=== PATIENT | male | born 1950 | race Caucasian/White ===

== ENCOUNTER 2017-09-24 07:45 | Day surgery (SDC) | payer OTHER ==
[~2017-09-24] VITALS: Ht 170.2 cm; Wt 88.5 kg
[~2017-09-24 07:45] MED LIST: ATOR10; Ginseng250 MG; IBUP400
== END 2017-09-24 09:55 | disposition home or self-care (01) ==
LOC: ORSCSDS 07:45
DX: Z12.11 Encounter for screening for malignant neoplasm of colon (principal); D12.0 Benign neoplasm of cecum; K63.89 Other specified diseases of intestine; K57.30 Diverticulosis of large intestine without perforation or abscess without bleeding; J44.9 Chronic obstructive pulmonary disease, unspecified; E78.5 Hyperlipidemia, unspecified; Z87.891 Personal history of nicotine dependence; Z79.899 Other long term (current) drug therapy
CPT/HCPCS: 88305; J0330; J1980; J2405

== ENCOUNTER 2019-11-19 16:28 | Inpatient (IN) | payer OTHER ==
[~2019-11-19] VITALS: Ht 170.2 cm; Wt 86.5 kg
[~2019-11-19 16:28] MED LIST changes: -ACET500 PO
[2019-11-19 21:45] LABS: CHOL/HDL RATIO 2.5; Cholesterol 158 mg/dL (50-200); HDL Cholesterol 64 mg/dL (>39); LDL/HDL RATIO 1.3; Low Density Lipoprotein Chol 82 mg/dL (0-110); Triglycerides 61 mg/dL (30-160); Very Low Density Lipoprot Chol 12 mg/dL (6-32)
--- NOTE | 2019-11-19 22:31 | NUR ---
PATIENT IS A NEW ADMIT FROM THE ED. SBA ASSIST TRANSFER FROM [facility] TO BED. ON 2L O2 NC AND RA BASELINE. AXOX 4 AND NPO. REPORTS SMOKING BOWL OF CANNABIS X ONE NIGHTLY AND EITHER HAVING A GLASS OF WINE/BEER X ONE WITH DINNER. REPORTED UPPER ABD/BACK PAIN. PATIENT ORIENTED TO ROOM AND CALL LIGHT SYSTEM. WILL CONTINUE TO MONITOR.
--- NOTE | 2019-11-19 22:36 | NUR ---
IV FENTANYL 50 MCG GIVEN FOR UPPER ABD/BACK PAIN. NS STARTED AT 125 mL/HR X ONE AND HALF BAGS. PATIENT REPORTS HE IS READY FOR BED. CALL LIGHT IN REACH.
--- NOTE | 2019-11-20 00:02 | NUR ---
PATIENT NAUSEOUS X ONE AND IV ZOFRAN GIVEN PER EMAR. BACK RESTING IN BED. CALL LIGHT IN REACH.
--- NOTE | 2019-11-20 03:25 | NUR ---
SHIFT SUMMARY PATIENT N/V X ONE AND ZOFRAN GIVEN PER EMAR AND RESOLVED. REPORTED UPPER ABD/BACK PAIN X TWO AND IV FENTANYL 50 MCG GIVEN PER EMAR. PIV REMAINS INTACT. NS INFUSING AT 125 mL/HR X 1.5 L. ON 2L O2 NC AND RA BASELINE. VSS WITH LOW GRADE TEMP. ROOM TEMPERATURE REDUCED AND BLANKETS REMOVED. AXOX 4 AND INDEPENDENT. NPO AT THIS TIME. CALL LIGHT IN REACH. BED IN LOWEST POSITION. WILL CONTINUE TO MONITOR UNTIL DAY SHIFT NURSE ASSUMES CARE.
--- NOTE | 2019-11-20 03:56 | NUR ---
PATIENT NAUSEOUS FOR SECOND TIME THIS SHIFT. IV ZOFRAN GIVEN PER EMAR.
[2019-11-20 04:57] LABS: Hematocrit 43.3 % (37.0-53.0); Hemoglobin 14.1 g/dL (13.5-17.5); Mean Corpuscular HGB 29.4 pg (26.0-34.0); Mean Corpuscular HGB Conc 32.6 g/dL (31.5-36.5); Mean Corpuscular Volume 90 fL (80-100); Mean Platelet Volume 9.5 fL (9.1-12.4); Platelet Count 264 K/mm3 (150-400); RDW Coefficient Variation 12.5 % (11.7-14.2); RDW Standard Deviation 41.4 fL (35.1-46.3); White Blood Cell Count 25.86 K/mm3 (4.00-11.30)
[2019-11-20 05:18] LABS: Alanine Aminotransfer (ALT/SGP 34 U/L (12-78); Albumin, Blood 3.4 g/dL (3.4-5.0); Albumin/Globulin Ratio 0.8 (0.8-1.8); Alk Phos 71 U/L (50-136); Anion Gap 7 mmol/L (6-16); Aspartate Aminotrans (AST/SGOT 19 U/L (12-37); Bilirubin, Total 0.8 mg/dL (0.1-1.0); Blood Urea Nitrogen 16 mg/dL (8-24); Bun/Creatinine Ratio 27.8 (12.0-20.0); CO2, Blood 26 mmol/L (21-32); Calcium, Blood 8.8 mg/dL (8.5-10.1); Chloride, Blood 106 mmol/L (98-108); Creatinine, Blood 0.58 mg/dL (0.60-1.20); Globulin, Blood 4.3 g/dL (2.2-4.0); Glomerular Filtration Rate >60 (60-); Glucose, Blood 101 mg/dL (70-99); Potassium, Blood 3.5 mmol/L (3.5-5.5); Sodium, Blood 139 mmol/L (136-145); Total Protein, Blood 7.7 g/dL (6.4-8.2)
--- NOTE | 2019-11-20 17:34 | NUR ---
SHIFT SUMMARY- PT IS A/O, PLESANT AND COOPERATIVE. PT WAS STARTED ON IV PROTONIX THIS MORNING WHICH HE SAID RELIEVED HIS REFLUX LIKE SYMPTOMS. HE IS RECIEVING IV PAIN MEDICATIONS PRN. HE HAD AN MRI AROUND 1200. PT IS NPO AT THIS TIME. HE IS INDEPENDANT IN THE ROOM.
--- NOTE | 2019-11-21 06:35 | NUR ---
SHIFT SUMMARY: VSS. AFEB. A/OX3. CONT W RUQ AND RLQ ABD DISCOMFORT WELL BACK PAIN. FENTANYL ADMINISTERED W/IMPROVEMENT IN PAIN. HEAT PACK APPLIED TO BACK, PT STATES IT'S SOOTHING MORE THAN PAIN RELIEVING. HAS BEEN SLEEPING THROUGH MUCH OF THE NIGHT. NO N/V. STATES PROTONIX HELPFUL. NO ACUTE CHANGES. PT RECIEVING WATER AND ICE CHIPS ONLY AND WILL BE NPO AFTER NOON TODAY IN PREP FOR EGD.
--- NOTE | 2019-11-21 16:09 | NUR ---
Patient gave student nurse permission for care 21 NOV 2019.
--- NOTE | 2019-11-21 16:29 | NUR ---
INTO [employer]IA [employer]. PT REPORTS 7/10 ABDOMINAL AND BACK PAIN. PT STATES THAT 3/10 IS TOLERABLE LEVEL FOR MED. HISTORY AND ALLERGIES REVIEWED NPO STATUS CONFIRMED. LUNGS CLEAR-SATS 97% ON RA.
--- NOTE | 2019-11-21 17:36 | NUR ---
11/21/19 1736 Miryam Harrington History, Chart, Medications and Allergies reviewed before start of procedure.PATIENT DETERMINED TO BE ASA APPROPRIATE FOR PROPOFOL SEDATION PRIOR TO START OF PROCEDURE BY .MONITOR INTACT WITH CONTINUOUS PULSE OXIMETRY AND INTERMITTENT BP.3-LEAD EKG REVIEWED WITH PHYSICIAN PRIOR TO START OF PROCEDURE.O2 VIA N/C INTACT THROUGHOUT SEDATION/PROCEDURE.
--- NOTE | 2019-11-21 19:34 | NUR ---
SHIFT SUMMARY PT A/O THROUGHOUT THIS SHIFT. PT MAINTAINED ON WATER AND ICE CHIPS UNTIL NOON, NPO AFTER NOON. PT TO ENDOSCOPY THIS AFTERNOON. PT RETURNED TO THE ROOM AROUND 430. PT ALERT AND ORIENTED UPON RETURN. SPOUSE IN ROOM BEFORE AND AFTER PROCEDURE. PT MEDICATED FOR PAIN THROUGHOUT THIS SHIFT. PT CURRENTLY SITTING UP IN BED.
--- NOTE | 2019-11-22 07:25 | NUR ---
END OF SHIFT; PATIENT WAS AOX4 THIS SHIFT. PT C/O MOSTLY BACK PAIN THIS SHIFT. SAID HE HAS ISSUES WITH HIS SHOULDER; A ROTATOR CUFF INJURY. HIS ABDOMENAL PAIN SEEMS TO HAVE IMPROVED, HOWEVER HE DID STILL RECV FENTANYL PER EMAR.
[2019-11-22] MEDS ORDERED: ACET500 PO (16:31)
--- NOTE | 2019-11-22 18:46 | NUR ---
DISCHARGE NOTE PT ALERT AND ORIENTED THROUGHOUT THIS SHIFT. PT INDEPENDENT IN THE ROOM. PT ADVANCED TO FULL LIQUIDS THIS SHIFT WITHOUT ISSUES. PT UP TO SHOWER INDEPENDENTLY THIS SHIFT. IV REMOVED PRIOR TO DISCHARGE. PT SPOUSE IN THE ROOM PRIOR TO DISCHARGE. PT INDEPENDENT TO WHEELCHAIR FOR DISCHARGE. PT AND SPOUSE PROVIDED WITH PT EDUCATION. NO QUESTIONS AT THIS TIME.
== END 2019-11-22 17:09 | disposition home or self-care (01) | DRG 439 ==
LOC: ER 16:28 → MEDS 18:57
PROVIDERS: Internal Medicine Gastroenterology; ADMIT Internal Medicine
PROC: 3E02340 Introduction of Influenza Vaccine into Muscle, Percutaneous Approach (ICD-10-PCS; 2019-11-19)
PROC: 0DB68ZX Excision of Stomach, Via Natural or Artificial Opening Endoscopic, Diagnostic (ICD-10-PCS; 2019-11-21)
PROC: 0DBA8ZX Excision of Jejunum, Via Natural or Artificial Opening Endoscopic, Diagnostic (ICD-10-PCS; 2019-11-21)
PROC: 0DB98ZX Excision of Duodenum, Via Natural or Artificial Opening Endoscopic, Diagnostic (ICD-10-PCS; principal; 2019-11-21 15:00)
PROC: 0DB78ZX Excision of Stomach, Pylorus, Via Natural or Artificial Opening Endoscopic, Diagnostic (ICD-10-PCS; 2019-11-21 15:00)
DX: K85.00 Idiopathic acute pancreatitis without necrosis or infection (principal); K22.10 Ulcer of esophagus without bleeding; E86.0 Dehydration; M25.512 Pain in left shoulder; E66.9 Obesity, unspecified; G60.9 Hereditary and idiopathic neuropathy, unspecified; E78.5 Hyperlipidemia, unspecified; L40.9 Psoriasis, unspecified; I73.9 Peripheral vascular disease, unspecified; Z23 Encounter for immunization; Z98.62 Peripheral vascular angioplasty status; Z79.899 Other long term (current) drug therapy; Z68.29 Body mass index [BMI] 29.0-29.9, adult
CPT/HCPCS: 36415; 74177; 74181; 76705; 80053; 80061; 85027; 88305; 88342; 90686; 96361; 96374-59; 96375; 99285-25; C9113; G0008; J1170; J2405; J2704; J3010; J7030; J7120; Q9967

== ENCOUNTER → 2019-11-19 | Outpatient (CLI) | payer OTHER ==
[~2019-11-19] MED LIST changes: +ACET500 PO; -ATOR10; +ATOR20 PO
[2019-11-19 15:34] LABS: BASOPHILS ABSOLUTE AUTO 0.04 K/mm3 (0.00-0.23); BASOPHILS PERCENT AUTO 0 % (0-2); EOSINOPHILS PERCENT AUTO 0 % (0-6); Hematocrit 48.5 % (37.0-53.0); Hemoglobin 16.4 g/dL (13.5-17.5); IMMATURE GRAN PERCENT AUTO 1 % (0-1); LYMPHOCYTES ABSOLUTE AUTO 0.85 K/mm3 (0.84-5.20); LYMPHOCYTES PERCENT AUTO 4 % (21-46); MONOCYTES ABSOLUTE AUTO 1.11 K/mm3 (0.16-1.47); MONOCYTES PERCENT AUTO 6 % (4-13); Mean Corpuscular HGB 29.8 pg (26.0-34.0); Mean Corpuscular HGB Conc 33.8 g/dL (31.5-36.5); Mean Corpuscular Volume 88 fL (80-100); Mean Platelet Volume 9.2 fL (9.1-12.4); NEUTROPHILS ABSOLUTE AUTO 18.19 K/mm3 (1.96-9.15); NEUTROPHILS PERCENT AUTO 90 % (41-73); Platelet Count 295 K/mm3 (150-400); RDW Coefficient Variation 12.4 % (11.7-14.2); RDW Standard Deviation 40.4 fL (35.1-46.3); White Blood Cell Count 20.29 K/mm3 (4.00-11.30)
[2019-11-19 15:58] LABS: Alanine Aminotransfer (ALT/SGP 50 U/L (12-78); Albumin, Blood 4.3 g/dL (3.4-5.0); Albumin/Globulin Ratio 0.9 (0.8-1.8); Alk Phos 95 U/L (40-126); Anion Gap 14 mmol/L (6-16); Aspartate Aminotrans (AST/SGOT 33 U/L (12-37); Bilirubin, Total 0.9 mg/dL (0.1-1.0); Blood Urea Nitrogen 19 mg/dL (8-24); Bun/Creatinine Ratio 25.7 (12.0-20.0); CO2, Blood 28 mmol/L (21-32); Calcium, Blood 9.8 mg/dL (8.5-10.1); Chloride, Blood 100 mmol/L (98-108); Creatinine, Blood 0.74 mg/dL (0.60-1.20); Globulin, Blood 4.9 g/dL (2.2-4.0); Glomerular Filtration Rate >60 (60-); Glucose, Blood 114 mg/dL (70-99); Potassium, Blood 3.8 mmol/L (3.5-5.5); Sodium, Blood 142 mmol/L (136-145); Total Protein, Blood 9.2 g/dL (6.4-8.2)
== END ==
LOC: LAB SHORT 15:28 → LAB EV 15:28
PROVIDERS: Nurse Practitioner
DX: R10.9 Unspecified abdominal pain (principal); R11.10 Vomiting, unspecified
CPT/HCPCS: 80053; 83690; 85025

== ENCOUNTER 2021-04-12 19:18 | Emergency (ER) | payer OTHER ==
[~2021-04-12] VITALS: Ht 170.2 cm; Wt 84.4 kg
[~2021-04-12 19:18] MED LIST changes: +ACET500 PO
[2021-04-12 19:55] LABS: BASOPHILS ABSOLUTE AUTO 0.02 K/mm3 (0.00-0.23); BASOPHILS PERCENT AUTO 0 % (0-2); EOSINOPHILS ABSOLUTE AUTO 0.17 K/mm3 (0.00-0.68); EOSINOPHILS PERCENT AUTO 3 % (0-6); Hematocrit 39.3 % (37.0-53.0); Hemoglobin 13.2 g/dL (13.5-17.5); IMMATURE GRAN ABSOLUTE AUTO 0.05 K/mm3 (0.00-0.10); IMMATURE GRAN PERCENT AUTO 1 % (0-1); LYMPHOCYTES ABSOLUTE AUTO 1.93 K/mm3 (0.84-5.20); LYMPHOCYTES PERCENT AUTO 31 % (21-46); MONOCYTES ABSOLUTE AUTO 0.67 K/mm3 (0.16-1.47); MONOCYTES PERCENT AUTO 11 % (4-13); Mean Corpuscular HGB 29.4 pg (26.0-34.0); Mean Corpuscular HGB Conc 33.6 g/dL (31.5-36.5); Mean Corpuscular Volume 88 fL (80-100); NEUTROPHILS ABSOLUTE AUTO 3.31 K/mm3 (1.96-9.15); NEUTROPHILS PERCENT AUTO 54 % (41-73); RDW Coefficient Variation 12.7 % (11.7-14.2); RDW Standard Deviation 41.1 fL (35.1-46.3); Red Blood Cell Count 4.49 M/mm3 (4.30-5.90); White Blood Cell Count 6.15 K/mm3 (4.00-11.30)
[2021-04-12 19:56] LABS: Mean Platelet Volume 9.6 fL (9.1-12.4); Platelet Count 138 K/mm3 (150-400)
[2021-04-12 20:10] LABS: Alanine Aminotransfer (ALT/SGP 46 U/L (12-78); Albumin, Blood 3.1 g/dL (3.4-5.0); Alk Phos 52 U/L (50-136); Anion Gap 6 mmol/L (6-16); Aspartate Aminotrans (AST/SGOT 34 U/L (12-37); Bilirubin, Total 0.6 mg/dL (0.1-1.0); Blood Urea Nitrogen 16 mg/dL (8-24); Bun/Creatinine Ratio 20.6 (12.0-20.0); CO2, Blood 24 mmol/L (21-32); Calcium, Blood 8.3 mg/dL (8.5-10.1); Chloride, Blood 111 mmol/L (98-108); Creatinine, Blood 0.78 mg/dL (0.60-1.20); Globulin, Blood 3.1 g/dL (2.2-4.0); Glomerular Filtration Rate >60 (60-); Glucose, Blood 93 mg/dL (70-99); Potassium, Blood 3.5 mmol/L (3.5-5.5); Sodium, Blood 141 mmol/L (136-145); Total Protein, Blood 6.2 g/dL (6.4-8.2)
== END 2021-04-12 21:04 | disposition home or self-care (01) ==
LOC: ER 19:18
PROVIDERS: Emergency Medicine
DX: T67.5XXA Heat exhaustion, unspecified, initial encounter (principal); E86.0 Dehydration; R55 Syncope and collapse; E78.5 Hyperlipidemia, unspecified; Z79.899 Other long term (current) drug therapy
CPT/HCPCS: 36415; 80053; 85025; 93005; 93010; 99284-25; J7030

== ENCOUNTER 2022-09-30 11:48 | Day surgery (SDC) | payer OTHER ==
[~2022-09-30] VITALS: Ht 172.7 cm; Wt 87.1 kg
[2022-09-30] MEDS ORDERED: ASPI81CH (12:09)
[2022-09-30] MEDS ORDERED: SIME40L (12:10)
== END 2022-09-30 13:43 | disposition home or self-care (01) ==
LOC: ORSCSDS 11:48
PROVIDERS: Internal Medicine Gastroenterology
PROC: 0DB58ZX Excision of Esophagus, Via Natural or Artificial Opening Endoscopic, Diagnostic (ICD-10-PCS; principal; 2022-09-30 13:00)
PROC: 0D757ZZ Dilation of Esophagus, Via Natural or Artificial Opening (ICD-10-PCS; principal; 2022-09-30 13:00)
PROC: 0DB98ZX Excision of Duodenum, Via Natural or Artificial Opening Endoscopic, Diagnostic (ICD-10-PCS; principal; 2022-09-30 13:00)
DX: R13.14 Dysphagia, pharyngoesophageal phase (principal); K21.9 Gastro-esophageal reflux disease without esophagitis; K22.70 Barrett's esophagus without dysplasia; K22.2 Esophageal obstruction; K29.80 Duodenitis without bleeding; Z87.891 Personal history of nicotine dependence; Z79.82 Long term (current) use of aspirin; Z79.899 Other long term (current) drug therapy
CPT/HCPCS: 88305; J2704; J7120

== ENCOUNTER 2022-12-16 09:20 | Day surgery (SDC) | payer OTHER ==
[~2022-12-16] VITALS: Ht 172.7 cm; Wt 85.6 kg
[~2022-12-16 09:20] MED LIST changes: +ASPI81CH; +SIME40L
== END 2022-12-16 11:49 | disposition home or self-care (01) ==
LOC: ORSCSDS 09:20
PROVIDERS: Internal Medicine Gastroenterology
PROC: 0DBK8ZX Excision of Ascending Colon, Via Natural or Artificial Opening Endoscopic, Diagnostic (ICD-10-PCS; principal; 2022-12-16 10:45)
PROC: 0DBM8ZX Excision of Descending Colon, Via Natural or Artificial Opening Endoscopic, Diagnostic (ICD-10-PCS; principal; 2022-12-16 10:45)
DX: Z12.11 Encounter for screening for malignant neoplasm of colon (principal); Z86.010 Personal history of colon polyps; K63.5 Polyp of colon; K63.89 Other specified diseases of intestine; K64.8 Other hemorrhoids; K57.30 Diverticulosis of large intestine without perforation or abscess without bleeding; K22.70 Barrett's esophagus without dysplasia; Z79.82 Long term (current) use of aspirin; Z79.899 Other long term (current) drug therapy
CPT/HCPCS: 88305; J2704; J7120

== ENCOUNTER → 2024-06-14 | Outpatient (CLI) | payer OTHER ==
[~2024-06-14] MED LIST changes: +OMEP20ER; +SIMETHICONE125 MG; +Saw Palmetto160 MG
[2024-06-16 16:30] LABS: PANCREATIC ELASTASE,FECAL 504 ug/g (>=100)
== END ==
LOC: LAB 07:15 → LAB SHORT 07:15
PROVIDERS: Physician Assistant Medical
DX: R14.0 Abdominal distension (gaseous) (principal)
CPT/HCPCS: 82653

== ENCOUNTER 2024-11-04 16:03 | Emergency (ER) | payer OTHER ==
[~2024-11-04] VITALS: Ht 172.7 cm; Wt 84.8 kg
[2024-11-04 16:31] LABS: BASOPHILS ABSOLUTE AUTO 0.03 K/mm3 (0.00-0.23); BASOPHILS PERCENT AUTO 0 % (0-2); EOSINOPHILS ABSOLUTE AUTO 0.15 K/mm3 (0.00-0.68); EOSINOPHILS PERCENT AUTO 2 % (0-6); Hemoglobin 13.3 g/dL (13.5-17.5); IMMATURE GRAN ABSOLUTE AUTO 0.02 K/mm3 (0.00-0.10); IMMATURE GRAN PERCENT AUTO 0 % (0-1); LYMPHOCYTES PERCENT AUTO 24 % (21-46); MONOCYTES ABSOLUTE AUTO 0.77 K/mm3 (0.16-1.47); MONOCYTES PERCENT AUTO 12 % (4-13); Mean Corpuscular HGB 28.9 pg (26.0-34.0); Mean Corpuscular HGB Conc 33.3 g/dL (31.5-36.5); Mean Corpuscular Volume 87 fL (80-100); NEUTROPHILS ABSOLUTE AUTO 4.13 K/mm3 (1.96-9.15); NEUTROPHILS PERCENT AUTO 62 % (41-73); Platelet Count 205 K/mm3 (150-400); RDW Coefficient Variation 12.7 % (11.7-14.2); Red Blood Cell Count 4.61 M/mm3 (4.30-5.90)
[2024-11-04 16:39] LABS: Magnesium, Blood 2.3 mg/dL (1.6-2.4)
[2024-11-04 16:40] LABS: Albumin, Blood 3.3 g/dL (3.4-5.0); Bilirubin, Total 0.9 mg/dL (0.1-1.0); Bun/Creatinine Ratio 17.2 (12.0-20.0); Calcium, Blood 8.5 mg/dL (8.5-10.1); Creatinine, Blood 0.99 mg/dL (0.60-1.20); Globulin, Blood 3.4 g/dL (2.2-4.0); Potassium, Blood 3.9 mmol/L (3.5-5.5); Total Protein, Blood 6.7 g/dL (6.4-8.2)
[2024-11-04 19:07] VITALS: BP 113/72
== END 2024-11-04 19:17 | disposition home or self-care (01) ==
LOC: ER 16:03
PROVIDERS: Student in an Organized Health Care Education/Training Program
DX: R56.9 Unspecified convulsions (principal); E78.5 Hyperlipidemia, unspecified; Z79.82 Long term (current) use of aspirin; Z79.899 Other long term (current) drug therapy
CPT/HCPCS: 70450; 80053; 83605; 83735; 85025; 93005; 93010; 99285-25